=== PATIENT | female | born 1955 | race Caucasian/White ===

== ENCOUNTER 2016-09-19 07:45 | Day surgery (SDC) | payer OTHER ==
[~2016-09-19] VITALS: Ht 170.2 cm; Wt 88.0 kg
[~2016-09-19 07:45] MED LIST: ASPI-653 PO; CHOL2000 PO; FLUT16SP2 NS; LOVA40TA PO; METH500T5 PO; MULT-1018 PO; OMEP20CA11 PO; PRIM250T PO; SERT20OR6 PO; Sodium Chloride LOK Flush 10 mL Syringe IV PRN; TRIA1TAB42 PO; UBID100C25 PO; VITA0.4T18 PO; ZES10 PO; fentaNYL-PF 50 mCg/mL 2 mL Inj IVPUSH PRN
[2016-09-19 08:18] VITALS: BP 137/86; PULSE 66; RESP 16; O2SAT 99
[2016-09-19] MEDS ORDERED: LISI10TA PO (08:21)
[2016-09-19] MEDS ORDERED: LOVA40TA PO (08:21)
[2016-09-19] MEDS ORDERED: ASPI-973 PO (08:22)
[2016-09-19] MEDS ORDERED: OMEP20CA11 PO (08:22)
[2016-09-19] MEDS ORDERED: TRIA1TAB5 PO (08:22)
[2016-09-19] MEDS: 0.9% Sodium Chloride 1,000 ML IV PRN ×2 (08:42→09:06)
[2016-09-19 09:14] VITALS: BP 104/66; PULSE 66; RESP 16; O2SAT 95
[2016-09-19 09:24] VITALS: BP 112/69; PULSE 69; RESP 16; O2SAT 99
--- NOTE | 2016-09-19 09:46 | ENDO ---
[address] [address] ENDOSCOPY PROCEDURE PATIENT: ILIA LINDSEY : 1955 MR#: [id number] ADMIT: 09/19/2016 JOB ID: [id number] PRIMARY PROVIDER: Armando Peterson MD PROCEDURE: A colonoscopy with hot snare polypectomy and cold forceps polypectomy. INDICATIONS: This is a 60-year-old female with a personal history of adenomatous colon polyps returning for surveillance. EQUIPMENT: [id number]. SEDATION: Versed 4 mg and 75 mcg fentanyl. COMPLICATIONS: None identified. BOWEL PREPARATION: Fair, adequate exam. PROCEDURE INFO: After the risks and benefits were explained, written and verbal informed consent was obtained. The patient was brought into the endoscopy suite and placed into the left lateral decubitus position. Sedation was achieved using the above-stated medications with the addition of oxygen via nasal cannula. A digital rectal examination was accomplished. Minimal internal hemorrhoids were appreciated. The scope was then introduced into the rectum and advanced under direct visualization to the level of the cecum, as identified by the appendiceal orifice and ileocecal valve. The scope was slowly withdrawn to carefully examine the mucosa for any defects or lesions. Retroflexed views were avoided in the rectum. Multiple direct views were made through the dentate line for exclusion of pathology. The colon was decompressed. The scope removed from the patient who tolerated the procedure well. FINDINGS: Some scattered diverticula were again seen in the left colon. There were 2 diminutive polyps removed. One was by way of cold forceps in the descending colon and the other was slightly larger, perhaps 5 mm, polyp removed with hot snare in the cecum. These were labeled "colon polyps." No other significant pathology was appreciated throughout. ENDOSCOPIC DIAGNOSES: 1. Colon polyps. 2. Diverticulosis. 3. Hemorrhoids. RECOMMENDATIONS: 1. Await histopathology. 2. Repeat colonoscopy 5 years.
--- NOTE | 2016-09-20 10:12 | PATH ---
SURGICAL PATHOLOGY Attending Physician:Amberly Donahue CASE STATUS: Signed Out PATIENT NAME: ILIA LINDSEY PID: [id number] : 1955 DATE COLLECTED:09/19/2016 17:13 SPECIMEN: Colon, Biopsy CLINICAL HISTORY: 1). COLON POLYPS FINAL DIAGNOSIS: 1.COLON POLYPS: TUBULAR ADENOMA INVOLVING SINGLE BIOPSY FRAGMENT. SINGLE POLYPOID-SHAPED FRAGMENT OF COLON MUCOSA CONSISTENT WITH MUCOSAL POLYPOID REDUNDANCY (NEGATIVE FOR DYSPLASIA AND MALIGNANCY). ICD10 CODE D12.6 GROSS DESCRIPTION: The specimen is received in one formalin filled container labeled with the patient's name, sublabeled "colon polyps" and consists of 2 portions of tissue which aggregate to 0.3 x 0.3 x 0.2 CM. The specimen is entirely submitted in one cassette. 09/19/2016 [facility] MICRO DESCRIPTION: See diagnosis. ICD-9 CODES: CPT CODES: 1: 92778 Electronically Signed Out Jimmy Vyas MD [facility] [address], [place] [address] Technical component performed at [facility], [facility] [address], [address]
== END 2016-09-19 23:59 | disposition home or self-care (01) ==
LOC: END 07:45
PROVIDERS: ATTEND Internal Medicine Gastroenterology
DX: Z12.11 Encounter for screening for malignant neoplasm of colon (principal); D12.0 Benign neoplasm of cecum; K21.9 Gastro-esophageal reflux disease without esophagitis; K64.8 Other hemorrhoids; Z86.010 Personal history of colon polyps; G25.0 Essential tremor; J45.909 Unspecified asthma, uncomplicated; I10 Essential (primary) hypertension; K57.30 Diverticulosis of large intestine without perforation or abscess without bleeding
CPT/HCPCS: 45380; 45385; 99153; G0500; J7030